=== PATIENT | male | born 1950 | race Caucasian/White ===

== ENCOUNTER → 2021-08-29 | Day surgery (SDC) | payer MEDICARE, OTHER ==
[~2021-08-29] VITALS: Ht 185.4 cm; Wt 99.8 kg
[~2021-08-29] MED LIST: BETIMOL15 ML EYEBOTH; CRESTOR10 MG PO; LATANOPROST EYEBOTH; LEVOTHYROXINE150 MC1 PO; NEXIUM20 MG PO; ZOLOFT50 MG PO
== END | disposition home or self-care (01) ==
LOC: FAS 06:30
DX: Z12.11 Encounter for screening for malignant neoplasm of colon (principal); D12.2 Benign neoplasm of ascending colon; D12.4 Benign neoplasm of descending colon; D12.3 Benign neoplasm of transverse colon; D12.0 Benign neoplasm of cecum; D12.5 Benign neoplasm of sigmoid colon; K63.89 Other specified diseases of intestine; E03.9 Hypothyroidism, unspecified; E78.00 Pure hypercholesterolemia, unspecified; K21.9 Gastro-esophageal reflux disease without esophagitis; I10 Essential (primary) hypertension; E78.5 Hyperlipidemia, unspecified; F32.9 Major depressive disorder, single episode, unspecified; Z87.891 Personal history of nicotine dependence; Z86.010 Personal history of colon polyps; Z79.899 Other long term (current) drug therapy
CPT/HCPCS: J2704; J7120